=== PATIENT | female | born 2005 | race Caucasian/White ===

== ENCOUNTER 2024-03-06 05:06 | Emergency (ER) | payer MEDICAID ==
[~2024-03-06] VITALS: Ht 167.6 cm; Wt 60.0 kg
[2024-03-06 05:15] VITALS: O2SAT 98
[2024-03-06] MEDS: SODIUM CHLORIDE 0.9% 1,000 ML IV ONE (05:41)
[2024-03-06 05:57] LABS: HEMOGLOBIN. 14.8 g/dL (12.0-16.0); MEAN CORPUSCULAR HEMOGLOBIN 32.8 pg (28.0-32.0); MEAN CORPUSCULAR HGB CONC 35.3 g/dL (31.0-37.0); PLATELET 213 x1000/uL (130-400); RED BLOOD CELL COUNT 4.52 mill/uL (4.2-5.4); RED CELL DISTRIBUTION WIDTH 12.7 % (11.6-14.6); WHITE BLOOD COUNT 10.8 x1000/uL (4.5-11.0)
[2024-03-06] MEDS: ONDANSETRON HCL 4MG TABLET PO ONE (05:58)
[2024-03-06] MEDS ORDERED: ONDA-239 PO (06:02)
[2024-03-06 06:04] LABS: CHLORIDE 109 mEq/L (98-107); POTASSIUM 3.5 mEq/L (3.5-5.1); SODIUM 140 mEq/L (136-145)
[2024-03-06 06:05] LABS: CARBON DIOXIDE 20 mEq/L (21-32)
[2024-03-06 06:06] LABS: CALCIUM 9.6 mg/dL (8.7-10.4)
[2024-03-06 06:10] LABS: CREATININE 0.8 mg/dL (0.6-1.0); GLUCOSE 113 mg/dL (70-105)
[2024-03-06 06:11] LABS: UREA NITROGEN BLOOD 15 mg/dL (9-23)
[2024-03-06 06:12] LABS: ALANINE AMINOTRANSFERASE 8 IU/L (10-49); ALBUMIN 4.8 g/dL (3.2-4.8); ASPARTATE AMINOTRANSFERASE 14 IU/L (<34)
[2024-03-06 06:13] LABS: BILIRUBIN DIRECT 0.3 mg/dL (<=3.0); PROTEIN TOTAL 7.6 g/dL (6.0-8.3)
[2024-03-06 06:51] LABS: HCG SCREEN NEGATIVE
[2024-03-06] MEDS: ONDANSETRON HCL 4MG/2ML INJ IM STA (07:10)
[2024-03-06 07:20] LABS: DIFFERENTIAL COMMENT 1
[2024-03-06 09:21] VITALS: BP 119/64; PULSE 87; RESP 16; TEMP 36.50292; O2SAT 98
[2024-03-06 11:58] LABS: PLATELET ESTIMATE NORMAL
== END 2024-03-06 09:22 | disposition home or self-care (01) ==
LOC: ER 05:06 → EDBD 05:06 → ER 09:22
DX: R11.2 Nausea with vomiting, unspecified (principal); R19.7 Diarrhea, unspecified; R00.0 Tachycardia, unspecified
CPT/HCPCS: 99283; 96360; 96361; 80076; 80048; 84703; 83690; 85025; 36415; 96372; Q0162; J2405; J7030

== ENCOUNTER 2024-11-02 20:31 | Emergency (ER) | payer MEDICAID, OTHER ==
[~2024-11-02] VITALS: Ht 167.6 cm; Wt 63.1 kg
[~2024-11-02 20:31] MED LIST: ONDA-239 PO
[2024-11-02 20:35] VITALS: TEMP 36.8; O2SAT 100
[2024-11-02 21:06] LABS: BASOPHILS % 0.5 % (0.0-2.0); EOSINOPHILS % 1.2 % (0.0-5.0); HEMATOCRIT. 39.0 % (36.0-48.0); HEMOGLOBIN. 13.7 g/dL (12.0-16.0); LYMPHOCYTES % 36.2 % (20.0-50.0); MEAN PLATELET VOLUME 9.4 fl (7.4-10.4); MONOCYTES % 4.7 % (2.0-8.0); NEUTROPHILS % 57.4 % (40.0-76.0); PLATELET 254 x1000/uL (130-400); RED BLOOD CELL COUNT 4.21 mill/uL (4.2-5.4); RED CELL DISTRIBUTION WIDTH 12.0 % (11.6-14.6)
[2024-11-02 21:18] LABS: HCG SCREEN NEGATIVE
[2024-11-02 21:21] LABS: CREATININE 0.8 mg/dL (0.6-1.0); UREA NITROGEN BLOOD 11 mg/dL (9-23)
[2024-11-02 21:23] LABS: ASPARTATE AMINOTRANSFERASE 15 IU/L (<34); BILIRUBIN DIRECT 0.2 mg/dL (<=3.0); BILIRUBIN TOTAL 0.6 mg/dL (0.1-1.0)
[2024-11-02 21:24] LABS: PROTEIN TOTAL 7.2 g/dL (6.0-8.3)
[2024-11-02 21:24] LABS: CLARITY URINE CLEAR (CLEAR); COLOR URINE YELLOW (YELLOW); GLUCOSE URINE NEGATIVE (NEGATIVE); KETONES URINE TRACE (NEGATIVE); LEUKOCYTE ESTERASE URINE NEGATIVE (NEGATIVE); NITRITE URINE NEGATIVE (NEGATIVE); OCCULT BLOOD URINE NEGATIVE (NEGATIVE); PH URINE 8.0 (4.5-8.0); PROTEIN URINE NEGATIVE (NEGATIVE); SPECIFIC GRAVITY URINE 1.026 (1.005-1.030); UROBILINOGEN URINE 1.0 E.U./dL (0.2-1.0)
[2024-11-02] MEDS: ONDANSETRON 4MG ODT PO ONE (21:50)
[2024-11-03] MEDS ORDERED: ONDA4TAB50 MT
[2024-11-03 00:20] VITALS: BP 116/75; PULSE 72; RESP 18; O2SAT 99
== END 2024-11-03 00:23 | disposition home or self-care (01) ==
LOC: ER 20:31
DX: R10.11 Right upper quadrant pain (principal); R11.2 Nausea with vomiting, unspecified; Z79.899 Other long term (current) drug therapy
CPT/HCPCS: 99284; 76705; 80076; 80048; 81003; 84703; 83690; 85025; 36415; 93005; Q0162